=== PATIENT | female | born 1960 | race Native Hawaiian/Other Pacific Islander ===

== ENCOUNTER 2016-10-10 15:33 | Emergency (ER) | payer OTHER ==
[~2016-10-10] VITALS: Ht 157.5 cm; Wt 63.1 kg
[2016-10-10 15:43] VITALS: BP 150/91; PULSE 102; PULSE 112; RESP 16; TEMP 98.3; O2SAT 99
[2016-10-10] MEDS ORDERED: [UNRECOGNIZED DRUG - OTHER] PO (16:02)
[2016-10-10] MEDS ORDERED: IMIT25TA PO (16:02)
--- NOTE | 2016-10-10 16:08 | PD ---
HPI Chief Complaint: Back/ Neck Pain or Injury Time Seen by Provider: 16:03 Travel History International Travel<30 days: No Contact w/Intl Traveler<30days: No Traveled to known affect area: No History of Present Illness HPI 56 year old female presents to the ED for evaluation of 3 week history of right- sided back pain, radiating down the right leg to the knee. Accompanied by tingling of the anterolateral right thigh. Patient denies fevers, chills, numbness, weakness, limitations to range of motion, saddle anesthesia, foot drop , incontinence. She endorses recent overuse, packing and moving to [place]. She has been treated by a chiropractor with no improvement of her symptoms. Denies chronic health problems, takes no daily medications. NKDA. PFSH Past Medical History Anxiety: Yes Migraines: Yes Tetanus Vaccination: > 5 Years Influenza Vaccination: No ?: Not Past Surgical History Tonsillectomy: Yes Social History Alcohol Use: No Tobacco Use: Yes (SOCIAL) Substance Use: No Allergies-Medications (Allergen,Severity, Reaction): Coded Allergies: No Known Allergies (Unverified , 10/10/16) Reported Meds & Prescriptions Reported Meds & Active Scripts Active Flexeril (Cyclobenzaprine HCl) 7.5 Mg Tab 7.5 Mg PO TID PRN Ibuprofen 800 Mg Tab 800 Mg PO Q8H Reported [Imperine] 1 Tab PO DIRECTED PRN Imitrex (Sumatriptan Succinate) 25 Mg Tab 25 Mg PO ONCE PRN If a satisfactory response has not been obtained at 2 hours, a second dose may be administered Review of Systems Except as stated in HPI: all other systems reviewed are Neg Physical Exam Narrative GENERAL: Well-nourished, well-developed white female in no acute distress. SKIN: Warm and dry. HEAD: Normocephalic. EYES: No scleral icterus. No injection or drainage. NECK: Supple, trachea midline. No JVD or lymphadenopathy. CARDIOVASCULAR: Regular rate and rhythm without murmurs, gallops, or rubs. 2+ DP and radial pulses bilaterally. RESPIRATORY: Breath sounds equal bilaterally. No accessory muscle use. GASTROINTESTINAL: Abdomen soft, non-tender, nondistended. MUSCULOSKELETAL: No cyanosis, or edema. Tender to palpation of the right anterior lateral hip. Straight leg raise positive on the right. 5/5 dorsiflexion, plantar flexion, knee flexion and hip flexion bilaterally. BACK: No obvious deformity. No CVA tenderness. Mildly tender to palpation of the midline lumbar spine and the paraspinal musculature to the right sided sciatic notch. Data Data Last Documented VS Vital Signs Date Time Temp Pulse Resp B/P Pulse Ox O2 Delivery O2 Flow Rate FiO2 10/10/16 15:43 98.3 102 16 150/91 99 Orders Ketorolac Inj (Toradol Inj) (10/10/16 16:30) [facility] Medical Decision Making Medical Screen Exam Complete: Yes Emergency Medical Condition: Yes Differential Diagnosis Acute on chronic back pain versus sciatica versus radiculopathy versus other Narrative Course 56 year old female presents to the ED for evaluation of 3 week history of right- sided back pain, radiating down the right leg to the knee. Accompanied by tingling of the anterolateral right thigh. Patient denies fevers, chills, numbness, weakness, limitations to range of motion, saddle anesthesia, foot drop , incontinence. She endorses recent overuse, packing and moving to [place]. She has been treated by a chiropractor with no improvement of her symptoms. Vitals reviewed. Physical exam consistent with sciatica. Right sided straight leg raise positive. No deficits of strength in bilateral lower extremities. Neurovascularly intact. Patient was administered IM Toradol. She was provided with a short course of anti-inflammatory medications and muscle relaxers. She is cautioned not to take muscle relaxers while driving. She is instructed to take medication as prescribed, return to normal, gentle activity as tolerated, follow-up with the primary care provider next week. She indicated understanding of instructions, is amenable to plan of care. She is stable and discharged home. Diagnosis Primary Impression: Sciatica neuralgia Qualified Code: M54.31 - Sciatica of right side Referrals: Neurologist Pain Management Patient Instructions: General Instructions, Sciatica (ED) Additional Instructions: Rest, hydrate. A mixture of rest and activity is best for back pain. Resume normal, gentle activities as tolerated. No strenuous physical activities for the next few days. STARTING TOMORROW MORNING: Take 800 mg ibuprofen 3 times a day as prescribed. Take Flexeril as needed for muscle spasm. (Or at bedtime as discussed.) Do not drive while taking Flexeril. Applying ice or heat to areas with sore muscles may help to improve your pain. Do not apply ice/ heat for longer than 20 m/h. GENTLE stretching and massage of the area may also help to improve pain symptoms. IF AN ACTION HURTS, STOP! Follow-up with your primary care provider this week. Return to the ED for any urgent or emergent medical condition. Med/Other Pt SpecificInfo: Prescription(s) given Scripts Cyclobenzaprine (Flexeril)7.5 Mg Tab7.5 Mg PO TID PRN (Muscle Spasm) #12 TAB Ref 0 Prov:Ab Arrington MD 10/10/16 Ibuprofen 800 Mg [id number] Mg PO Q8H #15 TAB Ref 0 Prov:Ab Arrington MD 10/10/16 Disposition: 01 DISCHARGE HOME Condition: Stable Irina Robison Oct 10, 2016 16:08
[2016-10-10] MEDS ORDERED: CYCL7.5T33 PO (16:22)
[2016-10-10] MEDS ORDERED: IBUP800T23 PO (16:22)
[2016-10-10] MEDS ORDERED: KETOROLAC TROMETHAMINE 60 MG/2 ML (IM) VIAL IM ONE (16:30)
== END 2016-10-10 16:42 | disposition home or self-care (01) ==
LOC: PHEFT 15:33
DX: M54.31 Sciatica, right side (principal); Z72.0 Tobacco use
CPT/HCPCS: 96372; 99283; J1885